=== PATIENT | female | born 1950 | race Caucasian/White ===

== ENCOUNTER → 2019-09-16 10:31 | Outpatient (BNVA) | payer OTHER, MEDICARE, SELFPAY | PROVIDERS: Family Provider Family Medicine; PCP Family Medicine; Visit Provider Internal Medicine Rheumatology | DX: M05.79 Rheumatoid arthritis with rheumatoid factor of multiple sites without organ or systems involvement (principal); Z79.899 Other long term (current) drug therapy | CPT/HCPCS: 99213 ==